=== PATIENT | female | born 1935 | race Caucasian/White ===

== ENCOUNTER 2017-05-06 17:47 | Inpatient (IN) | payer MEDICARE, OTHER ==
[~2017-05-06] VITALS: Ht 172.7 cm; Wt 81.6 kg
[~2017-05-06 17:47] MED LIST: BISACODYL5 MG PO; CRANBERRY 4001 EAC1 PO; GLUCOPHAGE XR500 MG PO; HYDROCORTISONE30 G9 RECTAL; JANUVIA100 MG PO; JANUVIA50 MG PO; LANOXIN 0.120.125 M1 PO; METFORMIN HCL500 MG PO; MIRALAX17 G1 PO; SORINE 80 MG TA80 M1 PO; TESSALON PERLE100 M1 PO; VICODIN 5-5001 EACH PO; VITAMIN B-12500 MCG PO; VITAMIN D 5050000 I1 PO; XARELTO10 MG PO; XARELTO20 MG PO
[2017-05-06 17:49] VITALS: BP 120/59
[2017-05-06] MEDS ORDERED: ASPIR 8181 MG PO (18:00)
[2017-05-06] MEDS ORDERED: XARELTO10 MG PO (18:00)
[2017-05-06] MEDS ORDERED: CRESTOR10 MG PO (18:01)
[2017-05-06 18:33] LABS: INFLUENZA A ANTIGEN None Detected (None Detect); INFLUENZA B ANTIGEN None Detected (None Detect)
[2017-05-06 18:40] LABS: HEMOGLOBIN 11.6 gm/dL (12.0-15.0); MCV 93.8 fL (80.0-100.0); NUCLEATED RBCS 0 /100WBC; PLATELET COUNT* 120 thou/uL (150-400); RBC 3.73 mil/uL (4.20-5.00); RDW-CV 15.3 % (10.5-14.5); WBC 3.6 thou/uL (4.0-11.0)
[2017-05-06 18:51] LABS: APTT 26.6 Seconds (25.0-31.3); INR 1.1; PROTIME 11.1 Seconds (9.20-11.50)
[2017-05-06 18:59] LABS: ANION GAP 10 mmol/L (7-16); BUN 24 mg/dL (7-18); CALCIUM 8.5 mg/dL (8.5-10.1); CHLORIDE 107 mmol/L (98-107); CO2 24 mmol/L (21-32); CREATININE 0.8 mg/dL (0.6-1.3); GLUCOSE 118 mg/dL (70-99); POTASSIUM 3.4 mmol/L (3.5-5.1); SODIUM 141 mmol/L (136-145)
[2017-05-06 19:02] LABS: ABSOLUTE LYMPHOCYTES 0.4 thou/uL (0.8-5.3); ABSOLUTE MONOCYTES 0.2 thou/uL (0.0-1.2); ATYPICAL LYMPHS 1 %
[2017-05-06 19:04] LABS: ALBUMIN 3.1 g/dL (3.4-5.0); ALKALINE PHOSPHATASE 64 U/L (46-116); NT-PRO BRAIN NAT PEPTIDE 2078 pg/mL (<300); PLATELET ESTIMATE DECREASED; SGOT 17 U/L (15-37); SGPT 14 U/L (30-65); TOTAL BILIRUBIN 0.9 mg/dL (<0.1-1.0); TOTAL PROTEIN 6.2 g/dL (6.4-8.2); TROPONIN-I LEVEL <0.06 ng/mL (<0.06)
[2017-05-06 19:59] LABS: URINE BILIRUBIN NEGATIVE (Negative); URINE BLOOD TRACE (Negative); URINE CLARITY CLEAR; URINE COLOR YELLOW; URINE GLUCOSE-RANDOM NEGATIVE (Negative); URINE KETONES TRACE (Negative); URINE LEUKOCYTES-REFLEX TRACE (Negative); URINE NITRITE-REFLEX NEGATIVE (Negative); URINE PROTEIN NEGATIVE (Negative); URINE SPECIFIC GRAVITY >= 1.030 (1.005-1.030); URINE UROBILINOGEN 0.2 E.U./dl (0.2-1.0)
[2017-05-06 20:07] LABS: HYALINE CASTS 0-3 Few /LPF (None Seen); MUCUS >6 Heavy strn/LPF (None Seen); SQUAMOUS >10 Many /LPF (0-3)
[2017-05-06 20:08] LABS: CRYSTALS None Seen /LPF (None Seen); URINE RBC 0-2 Rare /HPF (0-2); URINE WBC-REFLEX 6-15 Few /HPF (0-5)
[2017-05-06 20:26] VITALS: BP 122/62
[2017-05-06 20:40] VITALS: BP 110/58
[2017-05-06 22:00] VITALS: BP 110/58
--- NOTE | 2017-05-06 22:52 | NUR ---
2036 PATIENT ARRIVED TO UNIT FROM ER BY CART ACCOMPANIED BY GRANDDAUGHTER IN STABLE CONDITION. ADMISSION ROUTINES IN PROGRESS. CONTINUE TO MONITOR.
[2017-05-07 00:39] VITALS: BP 93/47
[2017-05-07 04:57] VITALS: BP 122/73
--- NOTE | 2017-05-07 05:00 | NUR ---
PATIENT HAS REMAINED ALERT AND ORIENTED X 4 THROUGHOUT THE SHIFT AND RESTING AT INTERVALS. LOOSE, NON-PRODUCTIVE COUGH. AFEBRILE. UP TO BSC WITH CGA. INCONT URINE MOST OF TIME. THIS IS HER NORM AND SHE WEARS A BRIEF. IVF'S PER ORDERS. RT PROVIDING TREATMENTS ORDERED. O2 ON AT 2L/MIN PER ORDERS. PATIENT DETERMINE HAVE THIS DISCONTINUED TODAY. FAMILY AT BEDSIDE. VITAL SIGNS STABLE. CONTINUE TO MONITOR.
[2017-05-07 08:00] VITALS: BP 128/75
--- NOTE | 2017-05-07 10:46 | NUR ---
ASSUMED CARES IN AM. ASSESSMENT PERFORMED AND DOCUMENTED. PT WAS INTITIALLY ON 02 LEVELS WERE GOOD. REMOVED O2 AND REMIANED STABLE AT 97% RA. PT WAS SETTING THE GOAL OF REMOVING O2 NEEDS. GOAL WAS MET. DENIES PAIN AND DISCOMFORT. DR FUCHS HAD VISITED PT AND DAUGHTER AT BEDSIDE. PLAN IS AGREED UPON TO REMIAN HERE ONE ADDITIONAL DAY FOR ANTIBOITIC TREATMENT. IVF AND ABX RUNNING. CALL LIGHT IS IN REACH AND BED IN LOWEST AND LOCKED POSIITON. FALL PREUCAITONS IN PLACE. WILL CONTINUE WITH PLAN OF CARE
--- NOTE | 2017-05-07 11:20 | EKG ---
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: [place] : 1935 Requested By: Marcial Talavera Order Number: [id number] MD: Juan Buchanan Measurements Intervals [place] Rate: 109 P: NE: QRS: 16 QRSD: 92 T: -47 QT: 332 QTc: 448 Interpretive Statements Atrial fibrillation Borderline repolarization abnormality Compared to ECG 12/26/2014 06:33:09 no change Electronically Signed On 05-07-2017 11:20:12 GARBAGE COLLECTION SUPERVISOR by Juan Buchanan [email or web address] <ELECTRONICALLY SIGNED> By: Juan Buchanan MD, [facility] 05/07/17 1120 181 181 Juan Buchanan MD, [facility] /EPI
[2017-05-07 16:00] VITALS: BP 126/70
--- NOTE | 2017-05-07 18:04 | NUR ---
I AGREE WITH THE ASSESSMENT OF THE NURSE WHO HAD PATIENT THIS MORNING. PATIENT HAS HAD NO COMPLAINTS OF PAIN TODAY. PATIENT IS UP WITH STANDBY ASSIST TO RESTROOM, VITAL SIGNS STABLE ON ROOM AIR TODAY. CALL LIGHT IS IN REACH, BED ALARM IS ON AND WILL CONTINUE TO MONITOR.
[2017-05-07 20:00] VITALS: BP 112/73
[2017-05-08 00:43] VITALS: BP 118/53
[2017-05-08 03:52] LABS: ABSOLUTE LYMPHOCYTES 0.9 thou/uL (0.8-5.3); ABSOLUTE MONOCYTES 0.3 thou/uL (0.0-1.2); ABSOLUTE NEUTROPHILS 2.2 thou/uL (1.6-8.1); BASOPHILS 0.4 %; EOSINOPHILS 0.1 %; HEMOGLOBIN 10.6 gm/dL (12.0-15.0); LYMPHOCYTES 25.4 %; MCH 31.3 pg (26.0-34.0); MCHC 33.3 g/dL (28.0-37.0); MCV 94.1 fL (80.0-100.0); MONOCYTES 7.8 %; MPV 8.5 fl. (7.2-11.1); NUCLEATED RBCS 0 /100WBC; PLATELET COUNT* 115 thou/uL (150-400); POLYS 66.3 %; RDW-CV 15.5 % (10.5-14.5); WBC 3.4 thou/uL (4.0-11.0)
[2017-05-08 04:09] LABS: CALCIUM 7.8 mg/dL (8.5-10.1); POTASSIUM 3.6 mmol/L (3.5-5.1)
--- NOTE | 2017-05-08 04:49 | NUR ---
ASSUMED CARE OF PT AT 1900,PT ALERT AND ORIENTED X4 VS AND ASSESSMENT STABLE. PT TOLERATING BEING OFF O2 SATS IN THE 90'S. PT DENIED ANY COMPLAINTS AND SLEPT THROUGH THE NIGHT. WILL MONITOR.
[2017-05-08 07:50] VITALS: BP 123/70
[2017-05-08 16:51] VITALS: BP 121/74
--- NOTE | 2017-05-08 16:58 | NUR ---
CM SPOKE TO THE PATIENT TO DISCUSS HOME SITUATION, DISCHARGE PLANNING, AND TO INFORM OF THE ROLE OF CM. PATIENT ALERT AND ORIENTED. PATIENT RESIDES AT HOME AND HER SON LIVES IN THE BASEMENT. PATIENT STATES THAT SHE PAYS A SERVICE TO CLEAN HER HOME, BUT IS ABLE TO PREPARE HER OWNS MEALS. PATIENT OWNS 0 DME. PATIENT HAS A HX OF HH BUT COULD NOT RECALL THE NAME. PATIENT HAS NO HX OF SNF. CM WILL REMAIN AVAILABLE TO ASSIST AND FOLLOW NEEDED.
--- NOTE | 2017-05-08 17:59 | NUR ---
PT DAUGHTER REPORTED CONFUSION FROM PT, BUT PT ANSWERED ALL QUESTIONS APPROPRIATELY AND CARRIED CONVERSATION WITHOUT DIFFICULTY. MADE AWARE OF FAMILY CONCERN. PT STEADY WITH WALKER, SBA TO BATHROOM. NO OTHER C/O TODAY.
[2017-05-08 20:00] VITALS: BP 130/66
[2017-05-09 00:11] VITALS: BP 127/75
--- NOTE | 2017-05-09 05:31 | NUR ---
ASSUMED CARE OF PT AT 1900 PT ALERT AND ORIENTED X4 VS AND ASSESSMENT STABLE. PT STEADY WITH AMBULATION TO THE BATHROOM. PT DENIED ANY COMPLAINTS AND SLEPT THROUGH THE NIGHT WILL MONITOR.
[2017-05-09 08:05] VITALS: BP 121/74
--- NOTE | 2017-05-09 17:16 | NUR ---
PT.WAS TO GO HOME TODAY AFTER THERAPY EVAL. DID WELL WITH THERAPY. WOKE UP AFTER AFTERNOON NAP SOMEWHAT CONFUSED. DAUGHTER REFUSING TO TAKE HER HOME. SARAH SPOKE WITH ON PHONE. HE WANTS TO DISCHARGE PT.TODAY EITHER TO SNF OR HOME. MICHAEL DUFFY AND THIS CM DISCUSSED WITH PT.AND DAUGHTER. DAUGHTER SAID SHE COULD NOT TAKE HER HOME WITH HER. SHE SAID HER BROTHER THAT LIVES IN BASEMENT OF MOTHERS HOUSE IS NOT FIT TO CARE FOR HER. SHE WOULD LIKE FOR HER TO GO TO [facility] FOR A SKILLED STAY TO GET STRONGER AND BE ABLE TO GO HOME ALONE. PT.AGREEABLE. SHE HAS BEEN THERE BEFORE. SARAH SPOKE WITH [facility]. SHE SAID THEY COULD ACCEPT PT.FIRST THING IN AM. REFERRAL FAXED TO HER. SHE WILL NEED TO CHECK PT.S MEDICARE DAYS. CM INFORMED DAUGHTER PT.WOULD DISCHARGE TOMORROW.
[2017-05-09 23:43] VITALS: BP 111/69
--- NOTE | 2017-05-10 04:45 | NUR ---
PATIENT ORIENTED X4, FORGETFUL AT TIMES. UP WITH STAND BY ASSIST TO BATHROOM. DENIES PAIN. TOLERATING DIET. VITALS STABLE ON ROOM AIR. WILL CONTINUE TO MONITOR.
[2017-05-10 08:00] VITALS: BP 93/70
[2017-05-10 12:05] VITALS: BP 93/70
[2017-05-10] MEDS ORDERED: MIRALAX17 GM PO (12:16)
[2017-05-10] MEDS ORDERED: MUCINEX600 MG PO (12:27)
[2017-05-10 12:29] VITALS: BP 93/70
[2017-05-10] MEDS ORDERED: AUGMENTIN 875-1 EACH PO (12:29)
--- NOTE | 2017-05-10 12:50 | NUR ---
PATIENT LEFT UNIT FOR [facility] AT 1245 BY WHEELCHAIR WITH TRANSPORTATION. IV DC'D. EDUCATED PATIENT AND DAUGHTER ON NEW MED SCRIPTS AND DISCHARGE INSTRUCTIONS. PATIENT AND DAUGHTER VERBALIZED UNDERSTANDING. ALL BELONGINGS LEFT WITH PATIENT.
[2017-05-10 12:53] VITALS: BP 93/70
--- NOTE | 2017-05-18 20:10 | CON ---
[facility] [address] [place] [address] CONSULTATION Name: BARBARA ALBERTO Room: [address] IN M.R.#: [id number] Admission: 05/06/17 Attend Phys: Tenzin Mendenhall Discharge: 05/10/17 Date of : 37 Report #: [id number] THIS REPORT FOR: //name// CC: Juan Mccormick DATE OF SERVICE: 05/09/2017 HISTORY OF PRESENT ILLNESS: This is an 81-year-old female patient who was evaluated by me for confusion. The patient does not know much about the confusion. She said she may have been confused yesterday, so I talked to the patient's daughter and she indicated that this patient was confused yesterday. She had some respiratory problem, then she became confused. She usually does not become that much confused. REVIEW OF SYSTEMS: She indicated that she had some stroke in the past. She cannot describe anything further in that regard. She had some colon problems and fecal impaction in the past. At one time, it looks like she had hypoxemia and she was admitted here because of that. She lives with her son and daughter live close by. It is not clear how much memory problem she had and how much different she is. I carried out 14-point review of systems initially from the patient and subsequently from the daughter and this was her relevant 14-point review of systems: She had hysterectomy in the past. She has diabetes. She has atrial fibrillation and she is on anticoagulation. PAST MEDICAL HISTORY: Positive for what appeared to be hypoxemia this time. She has confusion. FAMILY HISTORY: Negative for early age stroke. SOCIAL HISTORY: She says she does not drink any alcohol. PHYSICAL EXAMINATION: Indicate she is alert. She is responsive. She is partly oriented. She is cooperative intermittently. Her speech looks intact. Memory and fund of knowledge is diminished, but baseline is not clear. Cranial nerve examination 2-12 is unremarkable. She did not cooperate with the fundus examination. Her strength, sensation, reflexes are symmetrical. There is no meningeal sign. There is no carotid bruit in this patient. She does have some neck pain, but according to her, this is going on for several months and this is her baseline. Her cardiac examination is unremarkable. Her breathing is better. Blood pressure is 121/74, pulse is 87, temperature is 97.9. Temperature has been low below 100 throughout the course. LABORATORY DATA: She did have an MRI and MRA and they were reviewed and that looks mostly unremarkable [place] [address] CONSULTATION Name: BARBARA ALBERTO Geraldine Room: [address] IN ..#: [id number] Admission: 05/06/17 Attend Phys: Tenzin Mendenhall Discharge: 05/10/17 Date of : 37 Report #: [id number] IMPRESSION: It would appear that this patient may have had some hypoxia which cause her to decompensate. She also appeared to have viral syndrome and can develop viral encephalitis. Her MRI is unremarkable. RECOMMENDATION: I discussed with the patient first and subsequently discussed with the daughter. Daughter would like to have noninvasive testing, but is not interested in invasive testing like LP at least for the time being. That is going to be difficult because she has to come off the Xarelto for 3 days before that can be even done. 1. We will get an EEG done. 2. We will reevaluate tomorrow to see if she is better. 3. We will rediscuss with the patient because if she is not better and the family wants to be aggressive, spinal tap can be considered, that will be a big process because she has to come off the Xarelto. I spent more than 50 minutes of time taking care of this patient today and majority of that time was spent counseling the patient initially and subsequently the daughter. Thank you very much for this referral. <ELECTRONICALLY SIGNED> By: Nick Adan MD 05/18/172009 [id number] Adan MD /nt
== END 2017-05-10 12:54 | DRG 865 ==
LOC: M.ERS 17:47 → M.ORTHSURG 19:01 → M.TBA-ER 19:01 → M.ORTHSURG 20:37
PROVIDERS: Family Medicine; Internal Medicine; ADMIT Internal Medicine
PROC: 4A00X4Z Measurement of Central Nervous Electrical Activity, External Approach (ICD-10-PCS; principal; 2017-05-10)
DX: B34.9 Viral infection, unspecified (principal); G93.40 Encephalopathy, unspecified; R65.10 Systemic inflammatory response syndrome (SIRS) of non-infectious origin without acute organ dysfunction; Z90.49 Acquired absence of other specified parts of digestive tract; I48.91 Unspecified atrial fibrillation; E11.9 Type 2 diabetes mellitus without complications; M81.0 Age-related osteoporosis without current pathological fracture; D69.6 Thrombocytopenia, unspecified; E86.0 Dehydration; G31.84 Mild cognitive impairment of uncertain or unknown etiology; Z79.899 Other long term (current) drug therapy; Z79.82 Long term (current) use of aspirin; Z88.6 Allergy status to analgesic agent; Z88.8 Allergy status to other drugs, medicaments and biological substances; Z90.711 Acquired absence of uterus with remaining cervical stump; Z87.891 Personal history of nicotine dependence

== ENCOUNTER → 2017-10-03 | Outpatient (CLI) | payer MEDICARE, OTHER ==
[~2017-10-03] MED LIST changes: +ASPIR 8181 MG PO; +AUGMENTIN 875-1 EACH PO; +CRESTOR10 MG PO; +MIRALAX17 GM PO; +MUCINEX600 MG PO
== END ==
LOC: M.RAD 11:40
DX: M25.475 Effusion, left foot (principal)

== ENCOUNTER → 2017-10-08 | Outpatient (CLI) | payer MEDICARE, OTHER | LOC: M.ULTRA 10:16 | DX: M79.662 Pain in left lower leg (principal); M79.89 Other specified soft tissue disorders ==

== ENCOUNTER → 2019-04-15 | Outpatient (CLI) | payer MEDICARE, OTHER | LOC: M.RAD 16:01 | DX: M41.85 Other forms of scoliosis, thoracolumbar region (principal); M47.816 Spondylosis without myelopathy or radiculopathy, lumbar region; M85.80 Other specified disorders of bone density and structure, unspecified site; M41.84 Other forms of scoliosis, thoracic region ==

== ENCOUNTER → 2019-04-16 | Outpatient (CLI) | payer MEDICARE, OTHER | LOC: M.LAB 09:45 → M.CT 11:00 | PROVIDERS: Internal Medicine | DX: N28.1 Cyst of kidney, acquired (principal); I70.0 Atherosclerosis of aorta; K57.30 Diverticulosis of large intestine without perforation or abscess without bleeding; I51.7 Cardiomegaly; J90 Pleural effusion, not elsewhere classified; I25.10 Atherosclerotic heart disease of native coronary artery without angina pectoris; K76.0 Fatty (change of) liver, not elsewhere classified; M54.5 Low back pain; G89.29 Other chronic pain; Z88.5 Allergy status to narcotic agent; Z79.899 Other long term (current) drug therapy ==

== ENCOUNTER 2019-06-09 09:27 | Emergency (ER) | payer MEDICARE, OTHER ==
[~2019-06-09] VITALS: Ht 172.7 cm; Wt 72.0 kg
[2019-06-09] MEDS ORDERED: SENNA PLUS TAB1 EACH PO (09:38)
[2019-06-09 09:48] LABS: ABSOLUTE EOSINOPHILS 0.1 thou/uL (0.0-0.7); ABSOLUTE LYMPHOCYTES 1.3 thou/uL (0.8-5.3); ABSOLUTE MONOCYTES 0.3 thou/uL (0.0-1.2); ABSOLUTE NEUTROPHILS 1.8 thou/uL (1.6-8.1); BASOPHILS 1.4 %; EOSINOPHILS 2.3 %; HEMATOCRIT 36.2 % (37.0-47.0); HEMOGLOBIN 12.1 gm/dL (12.0-15.0); LYMPHOCYTES 36.5 %; MCH 32.2 pg (26.0-34.0); MCHC 33.4 g/dL (28.0-37.0); MCV 96.6 fL (80.0-100.0); MONOCYTES 9.7 %; MPV 7.9 fl. (7.2-11.1); NUCLEATED RBCS 0 /100WBC; PLATELET COUNT* 154 thou/uL (150-400); POLYS 50.1 %; RBC 3.75 mil/uL (4.20-5.00); RDW-CV 15.3 % (10.5-14.5); WBC 3.5 thou/uL (4.0-11.0)
[2019-06-09 09:56] LABS: CALCIUM 8.5 mg/dL (8.5-10.1); POTASSIUM 4.2 mmol/L (3.5-5.1)
[2019-06-09 10:00] LABS: ALBUMIN 3.4 g/dL (3.4-5.0); TOTAL BILIRUBIN 0.5 mg/dL (<0.1-1.0); TOTAL PROTEIN 6.7 g/dL (6.4-8.2)
[2019-06-09 12:58] LABS: URINE BILIRUBIN NEGATIVE (Negative); URINE BLOOD 2+ (Negative); URINE CLARITY CLEAR; URINE COLOR YELLOW; URINE GLUCOSE-RANDOM NEGATIVE (Negative); URINE KETONES NEGATIVE (Negative); URINE LEUKOCYTES-REFLEX 1+ (Negative); URINE NITRITE-REFLEX NEGATIVE (Negative); URINE PROTEIN 1+ (Negative); URINE UROBILINOGEN 0.2 E.U./dl (0.2-1.0)
[2019-06-09 13:03] LABS: AMORPHOUS PHOSPHATES Few /LPF (None Seen); CASTS None Seen /LPF (None Seen); HYALINE CASTS 0-3 Few /LPF (None Seen); MUCUS 0-3 Light strn/LPF (None Seen); SQUAMOUS 0-3 Few /LPF (0-3); URINE RBC 3-10 Few /HPF (0-2); URINE WBC-REFLEX 6-15 Few /HPF (0-5)
[2019-06-09 14:55] VITALS: BP 106/61
--- NOTE | 2019-06-11 13:56 | EKG ---
[place] [address] ELECTROCARDIOGRAM REPORT Name: BARBARA ALBERTO Room: [facility]#: [id number] Admission: 06/09/19 Attend Phys: Discharge: 06/09/19 Date of : 37 Date of Service: 06/09/19 0933 Report #: [id number] THIS REPORT FOR: cc: Juan Russell MD, David L. MD Holkins,Guerrero Ardon MD [facility] ~ THIS REPORT FOR: //name// [facility] ED Test Date: 2019-06-09 Test Time: 09:33:18 Pat Name: BARBARA ALBERTO Department: Room: Gender: F Dial Mounter: [facility] : 1935 Requested By: Libia Harper Order Number: [id number] Reading MD: Guerrero Vuong Measurements Intervals [place] Rate: 98 P: PA: QRS: 19 QRSD: 93 T: -27 QT: 332 QTc: 424 Interpretive Statements Atrial fibrillation with pvc's Borderline T abnormalities, diffuse leads Compared to ECG 05/06/2017 18:13:25 T-wave abnormality now present Electronically Signed On 06-09-2019 16:12:39 FORMING ROLL OPERATOR HEAVY DUTY by Guerrero Vuong [email or web address] <ELECTRONICALLY SIGNED> By: Guerrero Vuong MD, [facility] 06/09/19 1612 2 Guerrero Vuong MD, [facility] /EPI
== END 2019-06-09 14:55 | disposition home or self-care (01) ==
LOC: M.ERS 09:27
PROVIDERS: Personal Emergency Response Attendant
DX: K56.41 Fecal impaction (principal); I48.91 Unspecified atrial fibrillation; E11.9 Type 2 diabetes mellitus without complications; Z90.711 Acquired absence of uterus with remaining cervical stump; Z88.5 Allergy status to narcotic agent; Z88.8 Allergy status to other drugs, medicaments and biological substances

== ENCOUNTER → 2019-09-19 | Outpatient (CLI) | payer MEDICARE, OTHER ==
[~2019-09-19] MED LIST changes: +SENNA PLUS TAB1 EACH PO
== END ==
LOC: M.ULTRA 14:07
DX: R19.04 Left lower quadrant abdominal swelling, mass and lump (principal); Z90.49 Acquired absence of other specified parts of digestive tract

== ENCOUNTER 2020-02-03 19:12 | Inpatient (IN) | payer MEDICARE, OTHER ==
[~2020-02-03] VITALS: Ht 172.7 cm; Wt 62.6 kg
--- NOTE | ~2020-02-03 | CON ---
[address] [address] CONSULTATION Name: BARBARA ALBERTO Room: [address] IN M.R.#: [id number] Admission: 02/03/20 Attend Phys: Alesha Sarah MD Discharge: Date of : 37 Report #: [id number] THIS REPORT FOR: //name// cc: Juan Russell MD, David L. MD ~ THIS REPORT FOR: //name// CC: Juan Sarah DATE OF SERVICE: 02/04/2020 HISTORY OF PRESENT ILLNESS: This is an 84-year-old female patient who was evaluated because the patient had an episode of syncope. The record indicated that she may have had orthostatic hypotension at that time. The patient is a very poor historian and appeared to have significant amount of dementia. I called the patient's daughter and talked to her. She indicated that she has never been formally diagnosed with dementia or Alzheimer disease; however, they have suspected her. She still lives at home, but she has 24-hour supervision. She needs help with day-to-day activity on virtually everything, but she is able to ambulate some extent with a walker. They still think they will like to take the patient home. REVIEW OF SYSTEMS: A 14-point review of system was carried out. From all indication, it looks like this patient has advanced dementia. The family has taken care of the patient at home in spite of that, but they have multiple members who helps in this process. Now, she does appear to have orthopedic injury and she is being followed by Orthopedic. That was a relevant 14-point review of system. PAST MEDICAL HISTORY: Appear to be of significant dementia. FAMILY HISTORY: Unremarkable. SOCIAL HISTORY: She has an extensive family support and she has 24-hour supervision at home. PHYSICAL EXAMINATION: NEUROLOGICAL: The patient's examination was pretty limited. She is alert. She is responsive. When I asked her what month it is, she says it is February. She does not know the name of the president and memory is severely impaired. Her ability to cooperate is also pretty poor. When I tried to do the visual field evaluation, she is unable to cooperate. She does not understand the instruction. She does not appear to have facial palsy. Her right lower extremity has a fracture, but looks like she can move her feet up and down, but when she tried to move her leg, it hurts a lot. Left [place] [address] CONSULTATION Name: BARBARA ALBERTO Room: [address] IN [facility]#: [id number] Admission: 02/03/20 Attend Phys: Alesha Sarah MD Discharge: Date of : 37 Report #: [id number] well. Both upper extremities, she moves. I tried to do the sensory system examination, but she did not even understand the instructions. Rest of the neurological examination was not possible. She does not have any meningeal sign. VITAL SIGNS: Her blood pressure is 105/59, respirations 18, pulse is 97, temperature is 98. RESPIRATORY: She does not appear to be in any respiratory distress. CARDIAC: Unremarkable. LABORATORY DATA: White count is 3.9. GFR is 47. IMAGING STUDIES: She did have a CT scan of the head. Those images were reviewed, and they do not appear to be showing any acute changes. The patient does have significant atrophy. IMPRESSION AND PLAN: This patient's clinical presentation is consistent with what looks like advanced dementia. The family has provided 24-hour supervision at home and ____ where they want to keep it. I discussed with them further workup, which will include MRI and other testing. They do not want to do any further testing. In fact, they want very conservative care to just keep her comfortable. This is because of her advanced dementia. I did order a TSH and vitamin B12 to complete the workup to add to her blood workup. However, since the family does not want any further workup in this patient who appeared to have advanced dementia, I will sign off. Please call if the family changes their mind or wants to have further testing. Thank you very much for this referral, and if you have any question, please feel free to contact me. By: 1552 56Nick Palma MD /michelle
[2020-02-03 19:21] VITALS: BP 102/48
[2020-02-03 19:48] LABS: URINE BILIRUBIN NEGATIVE (Negative); URINE BLOOD TRACE (Negative); URINE CLARITY CLEAR; URINE COLOR YELLOW; URINE GLUCOSE-RANDOM NEGATIVE (Negative); URINE KETONES NEGATIVE (Negative); URINE LEUKOCYTES-REFLEX TRACE (Negative); URINE NITRITE-REFLEX NEGATIVE (Negative); URINE PROTEIN NEGATIVE (Negative); URINE UROBILINOGEN 0.2 E.U./dl (0.2-1.0)
[2020-02-03 20:00] LABS: BACTERIA-REFLEX >30 Many /HPF (None Seen); CASTS None Seen /LPF (None Seen); CRYSTALS None Seen /LPF (None Seen); SQUAMOUS 0-3 Few /LPF (0-3); URINE RBC 0-2 Rare /HPF (0-2); URINE WBC-REFLEX 0-5 Rare /HPF (0-5)
[2020-02-03 20:01] LABS: ABSOLUTE EOSINOPHILS 0.1 thou/uL (0.0-0.7); ABSOLUTE LYMPHOCYTES 1.1 thou/uL (0.8-5.3); ABSOLUTE MONOCYTES 0.3 thou/uL (0.0-1.2); ABSOLUTE NEUTROPHILS 2.4 thou/uL (1.6-8.1); HEMATOCRIT 34.9 % (37.0-47.0); HEMOGLOBIN 11.9 gm/dL (12.0-15.0); LYMPHOCYTES 27.9 %; MCH 32.4 pg (26.0-34.0); MCHC 34.2 g/dL (28.0-37.0); MCV 94.8 fL (80.0-100.0); MONOCYTES 6.9 %; MPV 7.3 fl. (7.2-11.1); NUCLEATED RBCS 0 /100WBC; PLATELET COUNT* 157 thou/uL (150-400); POLYS 62.2 %; RBC 3.68 mil/uL (4.20-5.00); RDW-CV 13.9 % (10.5-14.5); WBC 3.9 thou/uL (4.0-11.0)
[2020-02-03 20:09] LABS: CALCIUM 8.1 mg/dL (8.5-10.1); CREATININE 1.1 mg/dL (0.6-1.3); POTASSIUM 3.9 mmol/L (3.5-5.1)
[2020-02-03 20:10] LABS: APTT 23.8 Seconds (25.0-31.3); INR 1.1; PROTIME 11.3 Seconds (9.20-11.50)
[2020-02-03 20:13] LABS: TOTAL BILIRUBIN 0.4 mg/dL (<0.1-1.0); TOTAL PROTEIN 6.3 g/dL (6.4-8.2)
[2020-02-03 23:04] VITALS: BP 115/70
[2020-02-03 23:24] VITALS: BP 124/60
[2020-02-04 07:30] VITALS: BP 105/59
--- NOTE | 2020-02-04 10:18 | EKG ---
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: [place] : 1935 Requested By: Marcial Talavera Order Number: [id number] MD: Juan Buchanan Measurements Intervals [place] Rate: 91 P: [place]: QRS: 31 QRSD: 103 T: 14 QT: 368 QTc: 453 Interpretive Statements Atrial fibrillation Probable anterior infarct, age indeterminate Compared to ECG 06/09/2019 09:33:18 PVC's no longer present Electronically Signed On 02-04-2020 10:17:49 CDT by Juan Buchanan [email or web address] <ELECTRONICALLY SIGNED> By: Juan Buchanan MD, FACC 02/04/20 1017 26 26 Juan Buchanan MD, [facility] /EPI
[2020-02-04] MEDS ORDERED: SUPER THERAVIT1 EACH PO (11:29)
--- NOTE | 2020-02-04 14:12 | 2DMMODE ---
[place] [address] 2 D/M-MODE ECHOCARDIOGRAM Name: DOLLYBARBARA Geraldine Room: [address] IN M.R.#: [id number] Admission: 02/03/20 Attend Phys: Alesha Sarah, Discharge: Date of : 37 Date of Service: 02/04/20 1412 Report #: [id number] THIS REPORT FOR: cc: Juan Russell MD, David L. MD Blick, David R. MD [facility] ~ APPROVED REPORT Study performed: 02/04/2020 13:10:03 EXAM: Comprehensive 2D, Doppler, and color-flow Echocardiogram Patient Location: Bedside BSA: 1.73 HR: 97 bpm BP: 105/59 mmHg Other Information Study Quality: Good Indications Syncope 2D Dimensions IVSd: 11.99 (7-11mm) LVOT Diam: 20.99 (18-24mm) LVDd: 44.57 mm PWd: 12.82 (7-11mm) Ascending Ao: 30.36 (22-36mm) LVDs: 30.57 (25-40mm) Aortic Root: 36.05 mm Volumes Left Atrial Volume (Systole) LA ESV Index: 45.20 mL/m2 Aortic Valve AoV Peak Dallas.: 1.02 m/s AO Peak Gr.: 4.15 mmHg LVOT Max P.52 mmHg AO Mean Gr.: 2.24 mmHg LVOT Mean P.35 mmHg LVOT Max V: 0.79 m/s AO V2 VTI: 18.53 cm LVOT Mean V: 0.54 m/s RUDOLPH (VTI): 2.83 cm2 LVOT V1 VTI: 15.16 cm AI Moore: 2.30 m/s2 AI PHT: 444.01 [place] [address] 2 D/M-MODE ECHOCARDIOGRAM Name: BARBARA ALBERTO Room: [address] IN .R.#: [id number] Admission: 02/03/20 Attend Phys: Alesha Sarah, Discharge: Date of : 37 Date of Service: 02/04/20 1412 Report #: [id number] Mitral Valve E/A Ratio: 2.49 MV Decel. Time: 152.71 ms MV E Max Dallas.: 0.82 m/s MV PHT: 44.29 ms MVA (PHT): 4.97 cm2 TDI E/Lateral E': 6.83 E/Medial E': 6.31 Medial E' Dallas.: 0.13 m/s Lateral E' Dallas.: 0.12 m/s Pulmonary Valve PV Peak Dallas.: 0.68 m/s PV Peak Gr.: 1.85 mmHg Tricuspid Valve RAP Estimate: 20.00 mmHg TR Peak Gr.: 31.79 mmHg RVSP: 51.79 mmHg PA Pressure: 51.79 mmHg Left Ventricle The left ventricle is normal size. There is normal LV segmental wall motion. Mild concentric left ventricular hypertrophy. Left ventricular systolic function is normal. The left ventricular ejection fraction is within the normal range. LVEF is 55-60%. Right Ventricle The right ventricle is normal size. The right ventricular systolic function is normal. Atria Left atrium is moderately dilated. Right atrium is dilated. Aortic Valve The Aortic valve is sclerotic. Mild aortic regurgitation. There is no aortic valvular stenosis. Mitral Valve There is mitral annular calcification. Mild mitral regurgitation. No evidence of mitral valve stenosis. Tricuspid Valve The tricuspid valve is normal in structure. Mild tricuspid regurgitation. estimated pa pressure 40 [place] [address] 2 D/M-MODE ECHOCARDIOGRAM Name: BARBARA ALBERTO Geraldine Room: [address] IN [facility]#: [id number] Admission: 02/03/20 Attend Phys: Alesha Sarah, Discharge: Date of : 37 Date of Service: 02/04/20 1412 Report #: [id number] The pulmonary valve is normal in structure. Mild pulmonic regurgitation. Great Vessels The aortic root is normal in size. The IVC is dilated. Pericardium There is no pericardial effusion. Pleural effusion present. <Conclusion> Mild concentric left ventricular hypertrophy. LVEF is 55-60%. Left atrium is moderately dilated. Right atrium is dilated. The Aortic valve is sclerotic. Mild aortic regurgitation. Mild mitral regurgitation. Mild tricuspid regurgitation. estimated pa pressure 40 mm Hg <ELECTRONICALLY SIGNED> By: Juan Buchanan MD, FACC 02/04/20 141 11 11 Juan Buchanan MD, FACC /INF
[2020-02-04 18:00] VITALS: BP 95/55
[2020-02-04 20:00] VITALS: BP 107/56
[2020-02-05] VITALS (7 sets, daily range): BP systolic 96–108; BP diastolic 47–62
[2020-02-05] MEDS ORDERED: LIDOPATCH1 EACH TOP (09:24)
[2020-02-05] MEDS ORDERED: TRAMADOL 50 MG50 MG PO (09:24)
--- NOTE | 2020-02-06 16:07 | CON ---
[address] [address] CONSULTATION Name: BARBARA ALBERTO Room: [address] IN M.R.#: [id number] Admission: 02/03/20 Attend Phys: Alesha Sarah MD Discharge: 02/05/20 Date of : 37 Report #: [id number] THIS REPORT FOR: //name// cc: Juan Russell MD, David L. MD ~ THIS REPORT FOR: //name// CC: Juan Sarah DATE OF SERVICE: 02/04/2020 CARDIOLOGY CONSULTATION HISTORY OF PRESENT ILLNESS: The patient is an 84-year-old single white female who I was asked to see in the hospital today after she had a syncopal spell. The patient has an extensive past medical history. She has a long history of coronary artery disease and had previous coronary stents placed in the past. She also apparently has episodes of orthostatic hypotension with syncope. She is currently followed by Dr. Galeano at [place]. She was admitted here to [place] in 2018 with upper respiratory illness. She does have a history of dementia. The patient states she was last admitted to [place] about a year ago. She uses a walker at home. She is not very active. She does get lightheaded when she stands up. Yesterday, the patient was at home with her daughter, walked to the bathroom. She suddenly fell and had to be helped to an ambulance. She was brought here to [place] and found to have fractured her right leg. Cardiology consultation requested. She denies any chest pain, shortness of breath. She does note occasional episodes where heart rate will increase. She has had no vomiting, diarrhea, bleeding. She does have a history of atrial fibrillation in the past and has been chronically anticoagulated with Xarelto. PAST MEDICAL HISTORY: Significant for cholecystectomy, hysterectomy, shoulder surgery, knee replacement, glucose intolerance, hyperlipidemia, and paroxysmal atrial fibrillation. CURRENT MEDICATIONS: Include Xarelto. She is no longer on Crestor nor metformin. ALLERGIES: SHE HAS AN ALLERGY TO CODEINE. FAMILY HISTORY: Positive for heart disease. SOCIAL HISTORY: She is single, lives by herself here in [place] with a son. Quit smoking years ago[place] [address] CONSULTATION Name: BARBARA ALBERTO Room: [address] IN [facility].#: [id number] Admission: 02/03/20 Attend Phys: Alesha Sarah MD Discharge: 02/05/20 Date of : 37 Report #: [id number] REVIEW OF SYSTEMS: She apparently had a stroke years ago with some memory issues. No history of asthma, liver disease, kidney disease. She had cervical cancer treated by hysterectomy. No psychiatric illness. No chronic skin condition. PHYSICAL EXAMINATION: GENERAL: Revealed an elderly, frail-appearing female, lying in bed. She appeared in no distress. VITAL SIGNS: She had a blood pressure of 106/60, pulse is 90. She is afebrile. HEENT: She was anicteric. Conjunctivae are pink. Mucous membranes moist. NECK: Veins do not appear distended. CHEST: Clear to auscultation. CARDIOVASCULAR: rate and rhythm, no murmur. ABDOMEN: Soft. EXTREMITIES: Had no edema. SKIN: Cool and dry. NEUROLOGIC: She is very slow moving. RADIOLOGICAL DATA: Her ECG on admission showed atrial fibrillation, controlled ventricular response rate. She actually had an echocardiogram performed earlier today that showed ejection fraction , left ventricular hypertrophy, biatrial enlargement, aortic sclerosis. Her portable chest x-ray showed a small effusion, normal heart size, some atelectasis. CT scan of the head without contrast showed no acute abnormality. She had MRA of the carotids performed in 2018 here at [place] that showed no significant carotid stenosis. LABORATORY DATA: Sodium 139, creatinine 1.1. Troponin 0.06. BNP 2078. Previous LDL was 126. Her white blood cell count 3.9, hemoglobin 11.9. IMPRESSION AND RECOMMENDATIONS: 1. Syncope. Suspect orthostatic hypotension. The patient apparently has refused medications in the past. We will obtain records from her auto porter. 2. Atrial fibrillation. Rate appears controlled despite the fact the patient is on no drugs which block the AV node. The patient is on Xarelto. I would consider placement of a Watchman device since the patient does not appear to be a very good candidate for anticoagulation because of her history of recurrent falls. 3. Coronary artery disease. No significant angina. The patient is not on aspirin since she is on Xarelto. 4. Glucose intolerance. The patient is no longer on metformin. 5. Hyperlipidemia. The patient is no longer on a statin drug. 6. Dementia. <ELECTRONICALLY SIGNED> By: Juan Buchanan MD, FACC 02/06/20 1607 1517 [id number] Buchanan MD, FACC /nt
== END 2020-02-05 13:20 | disposition home health service (06) | DRG 543 ==
LOC: M.ERS 19:12 → M.ORTHSURG 22:03 → M.TBA-ER 22:03 → M.ORTHSURG 23:16 → M.2W 02-04 12:54
PROVIDERS: Family Medicine; ADMIT Internal Medicine; ATTEND Internal Medicine
PROC: 2W3LX1Z Immobilization of Right Lower Extremity using Splint (ICD-10-PCS; principal; 2020-02-03)
DX: M80.051A Age-related osteoporosis with current pathological fracture, right femur, initial encounter for fracture (principal); E44.0 Moderate protein-calorie malnutrition; Z20.828 Contact with and (suspected) exposure to other viral communicable diseases; Z96.651 Presence of right artificial knee joint; I48.91 Unspecified atrial fibrillation; E11.9 Type 2 diabetes mellitus without complications; I48.0 Paroxysmal atrial fibrillation; F03.90 Unspecified dementia, unspecified severity, without behavioral disturbance, psychotic disturbance, mood disturbance, and anxiety; R55 Syncope and collapse; Z79.82 Long term (current) use of aspirin; Z79.899 Other long term (current) drug therapy; Z79.01 Long term (current) use of anticoagulants; Z90.711 Acquired absence of uterus with remaining cervical stump; Z88.6 Allergy status to analgesic agent; Z88.8 Allergy status to other drugs, medicaments and biological substances; Z90.49 Acquired absence of other specified parts of digestive tract; Z82.49 Family history of ischemic heart disease and other diseases of the circulatory system; Z68.21 Body mass index [BMI] 21.0-21.9, adult; Z28.21 Immunization not carried out because of patient refusal